=== PATIENT | female | born 1950 | race Caucasian/White ===

== ENCOUNTER 2024-10-24 10:13 | Emergency (ER) | payer MEDICARE, SELFPAY ==
[2024-10-24] VITALS (17 sets, daily range): BP systolic 119–156; BP diastolic 65–87; PULSE 61–74; TEMP 37.1; O2SAT 95–99; BMI 31.6
--- NOTE | 2024-10-24 10:33 | ECG_ITS ---
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
--- NOTE | 2024-10-24 10:33 | XR_ITS ---
The [address] [address] Patient Name: PAU ALY MRN: [id number] date: 1950 Sex: F Assigned Patient Location: ER Current Patient Location: ED.MAIN Accession/Order Number: [id number] Exam Date: 10/24/2024 10:38 Report Date: 10/24/2024 11:20 At the request of: RAYSA GOMEZ Procedure: XR chest 1V EXAMINATION: XR chest 1V HISTORY: Chest pain COMPARISON: No relevant comparison available. TECHNIQUE: AP portable FINDINGS: LUNGS: No significant pulmonary parenchymal abnormalities. VASCULATURE: No increased pulmonary vasculature. PLEURA: No pneumothorax, effusion, or pleural thickening. CARDIAC: No cardiomegaly or cardiac silhouette abnormality. MEDIASTINUM: No visible mass or adenopathy. BONES: Moderate degenerative disc disease and spondylosis without visible acute abnormalities. OTHER: Negative. XR/XR chest 1V IMPRESSION: No acute cardiopulmonary process Electronically authenticated by: SUJEY STARK Date: 10/24/2024 11:20
--- NOTE | 2024-10-24 10:33 | ED.CHESTPAI1 ---
HPI - Chest Pain General Chief Complaint: Chest Pain Stated Complaint: CHEST PAINS Time Seen by Provider: 10/24/24 10:29 Source: patient Mode of arrival: walk-in History of Present Illness HPI narrative: 74-year-old female presents to the emergency department for chest pain. It came on during the night and it felt sharp and it is in the right upper chest and goes to the sternal area. There was no injury but she did move her mattress last night. 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 No injury and no complaints of shortness of breath. Related Data Home Medications ?Medication ?Instructions ?Recorded ?Confirmed alendronate 35 mg tablet mg PO 10/24/24 aspirin 81 mg tablet,delayed 81 mg PO DAILY 10/24/24 10/24/24 release (Adult Aspirin Regimen) carvedilol 3.125 mg tablet mg 10/24/24 gemfibrozil 600 mg tablet mg 10/24/24 glimepiride 4 mg tablet mg 10/24/24 insulin syringe-needle U-100 0.5 10/24/24 10/24/24 mL 31 gauge x 5/16 (BD Insulin Syringe Ultra-Fine) lisinopril 20 mg tablet mg 10/24/24 metformin 500 mg tablet,extended mg PO 10/24/24 release 24 hr pravastatin 80 mg tablet mg 10/24/24 Allergies Allergy/AdvReac Type Severity Reaction Status Date / Time No Known Drug Allergies Allergy Verified 10/24/24 10:23 Review of Systems ROS Narrative A ten point review of systems is negative except as noted above. PFSH PFSH Social History Little interest or pleasure in doing things: not at all Feeling down, depressed, or hopeless: not at all Exam Narrative Exam Narrative: Nurses note and vital signs reviewed and patient is not hypoxic. General: The patient appears well and in no apparent distress. Patient is resting comfortably on cart. Skin: Warm, dry, no pallor noted. There is no rash noted. Head: Normocephalic, atraumatic Eye: Normal conjunctiva, no drainage Ears, Nose, Mouth, and Throat: oral mucosa is moist. Nares patent. Cardiovascular: Regular Rate and Rhythm Respiratory: Patient is in no distress, no accessory muscle use, lungs are clear to auscultation, no wheezing, rales or rhonchi Back: non-tender, no CVA tenderness bilaterally to percussion. GI: Soft and nontender Musculoskeletal: The patient has no evidence of calf tenderness, no pitting edema, symmetrical pulses noted bilaterally Neurological: A&O, normal speech Psychiatric: Cooperative Constitutional Vital Signs, click to edit/add: Last Vital Signs Temp 98.8 F 10/24/24 10:30 Pulse 68 10/24/24 12:30 Resp 18 10/24/24 12:30 BP 119/65 10/24/24 12:00 Pulse Ox 97 10/24/24 12:30 O2 Del Method Room Air 10/24/24 10:23 Course Vital Signs Vital signs: Vital Signs Pulse Rate 64 10/24/24 10:23 Respiratory Rate 16 10/24/24 10:23 Blood Pressure 156/72 H 10/24/24 10:23 Pulse Oximetry 97 10/24/24 10:23 Oxygen Delivery Method Room Air 10/24/24 10:23 Temperature 98.8 F 10/24/24 10:30 Pulse Rate 68 10/24/24 12:30 Respiratory Rate 18 10/24/24 12:30 Blood Pressure 119/65 10/24/24 12:00 Pulse Oximetry 97 10/24/24 12:30 Oxygen Delivery Method Room Air 10/24/24 10:23 MDM - Chest Pain MDM Narrative Medical decision making narrative: Her workup including 2 sets of troponin and a D-dimer was negative. She will be discharged home but will follow-up with her PCP. No evidence of acute coronary syndrome at this point. Treatment diagnosis and follow-up were discussed with the patient. Differential Diagnosis Differential diagnosis: Likely pneumothorax, unstable angina pectoris, atypical chest pain, st elevation myocardial infarction, costochondritis and chest pain Lab Data Attestation: I reviewed the patient's lab results. Labs: Lab Results 10/24/24 10/24/24 Range/Units 10:28 11:32 WBC 7.4 (4.0-11.0) 10^3/uL RBC 3.69 L (4.20-5.40) 10^6/uL Hgb 10.5 L (12.0-16.0) g/dL Hct 33.5 L (36.0-48.0) % MCV 90.8 (81.0-99.0) fL MCH 28.5 (26.7-34.0) pg MCHC 31.3 (29.9-35.2) g/dL RDW 13.2 (11.0-15.0) % Plt Count 244 (150-450) 10^3/uL MPV 9.9 (9.5-13.5) fL Neut % (Auto) 70.3 (43.0-75.0) % Lymph % (Auto) 17.1 L (20.5-60.0) % Bullock % (Auto) 9.3 (1.7-12.0) % Eos % (Auto) 2.3 (0.9-7.0) % Baso % (Auto) 0.7 (0.2-2.0) % Neut # (Auto) 5.2 (1.4-6.5) 10^3/uL Lymph # (Auto) 1.3 (1.2-3.8) 10^3/uL Bullock # (Auto) 0.7 (0.3-0.8) 10^3/uL Eos # (Auto) 0.2 (0.0-0.7) 10^3/uL Baso # (Auto) 0.1 (0.0-0.1) 10^3/uL Abs Immat Gran (auto) 0.02 (0.00-0.03) 10^3/uL Imm/Tot Granulo (auto) 0.3 (0.0-0.5) % D-Dimer 0.37 (<=0.59) mg/L FEU Sodium 137 (136-145) mmol/L Potassium 4.7 (3.5-5.1) mmol/L Chloride 103 (98-107) mmol/L Carbon Dioxide 22.2 (21.0-32.0) mmol/L Anion Gap 16.5 BUN 20.0 H (7.0-18.0) mg/dL Creatinine 1.10 H (0.55-1.02) mg/dL Est GFR ( Amer) 59 L (>=60 mL/min/1.73m^2) Est GFR (Non-Af Amer) 49 L (>=60 mL/min/1.73m^2) BUN/Creatinine Ratio 18.2 Glucose 234 H (74-106) mg/dL Calcium 9.4 (8.5-10.1) mg/dL Troponin I High Sens 6.9 <4.0 L (4.0-51.3) pg/mL Imaging Data Chest x-ray: Radiologist's impression: ITS Impressions Chest X-Ray 10/24/24 10:33 IMPRESSION: No acute cardiopulmonary process Electronically authenticated by: SUJEY STARK Date: 10/24/2024 11:20 ECG Data Attestation: I personally reviewed and interpreted this ECG as follows: (EKG on my interpretation shows normal sinus rhythm without acute change) Heart Score History: Slightly/Non-Suspicious ECG: Normal Age: >65 years Risk Factors: 1 or 2 Risk Factors Troponin: <Normal Limit Total Heart Score Recommendations & Risks:: 3 Discharge Plan Discharge Chief Complaint: Chest Pain Clinical Impression: Chest pain Patient Disposition: Home, Self-Care Time of Disposition Decision: 12:38 Condition: Good Mode of Transportation: Private Vehicle Prescriptions / Home Meds: No Action lisinopril 20 mg tablet carvedilol 3.125 mg tablet alendronate 35 mg tablet PO pravastatin 80 mg tablet gemfibrozil 600 mg tablet glimepiride 4 mg tablet metformin 500 mg tablet extended release 24 hr PO (DME) insulin syringe-needle U-100 [BD Insulin Syringe Ultra-Fine] 0.5 mL 31 gauge x 5/16 syringe MISCELLANEOUS aspirin [Adult Aspirin Regimen] 81 mg tablet,delayed release (DR/EC) 81 mg PO DAILY Print Language: Lithuanian Instructions: Chest Pain (ED) Referrals: KARO GARNICA [Primary Care Provider] - 1 week
[2024-10-24 10:46] LABS: Basophils Absolute Auto 0.1 10^3/uL (0.0-0.1); Basophils Percent Auto 0.7 % (0.2-2.0); Eosinophils Absolute Auto 0.2 10^3/uL (0.0-0.7); Eosinophils Percent Auto 2.3 % (0.9-7.0); Hematocrit 33.5 % (36.0-48.0); Hemoglobin 10.5 g/dL (12.0-16.0); Immature Granulocytes Abs Auto 0.02 10^3/uL (0.00-0.03); Immature Granulocytes Pct Auto 0.3 % (0.0-0.5); Lymphocytes Absolute Auto 1.3 10^3/uL (1.2-3.8); Lymphocytes Percent Auto 17.1 % (20.5-60.0); Mean Corpuscular HGB Conc 31.3 g/dL (29.9-35.2); Mean Corpuscular Hemoglobin 28.5 pg (26.7-34.0); Mean Corpuscular Volume 90.8 fL (81.0-99.0); Mean Platelet Volume 9.9 fL (9.5-13.5); Monocytes Absolute Auto 0.7 10^3/uL (0.3-0.8); Monocytes Percent Auto 9.3 % (1.7-12.0); Neutrophils Absolute Auto 5.2 10^3/uL (1.4-6.5); Neutrophils Percent Auto 70.3 % (43.0-75.0); Platelet Count 244 10^3/uL (150-450); Red Blood Count 3.69 10^6/uL (4.20-5.40); Red Cell Distribution Width 13.2 % (11.0-15.0); White Blood Count 7.4 10^3/uL (4.0-11.0)
[2024-10-24 11:07] LABS: Anion Gap 16.5; BUN Creatinine Ratio 18.2; Calcium 9.4 mg/dL (8.5-10.1); Carbon Dioxide 22.2 mmol/L (21.0-32.0); Chloride 103 mmol/L (98-107); Estimated GFR (African America 59 (>=60 mL/min/1.73m^2); Estimated GFR (Non-African Ame 49 (>=60 mL/min/1.73m^2); Glucose 234 mg/dL (74-106); Potassium 4.7 mmol/L (3.5-5.1); Sodium 137 mmol/L (136-145); Troponin I High Sensitivity 6.9 pg/mL (4.0-51.3)
[2024-10-24 11:18] LABS: D Dimer 0.37 mg/L FEU (<=0.59)
[2024-10-24 12:02] LABS: Troponin I High Sensitivity <4.0 pg/mL (4.0-51.3)
== END 2024-10-24 12:48 | disposition home or self-care (01) ==
PROVIDERS: Emergency Provider Emergency Medicine; PCP Family Medicine
DX: R07.9 Chest pain, unspecified (principal)
CPT/HCPCS: 36415; 71045; 80048; 84484; 85025; 85378; 93005; 99285